=== PATIENT | female | born 1990 | race Caucasian/White ===

== ENCOUNTER 2021-04-14 13:25 | Emergency (ER) | payer OTHER ==
[~2021-04-14] VITALS: Ht 182.9 cm; Wt 96.5 kg
[2021-04-14] MEDS ORDERED: IBUP200C33 PO (13:36)
[2021-04-14] MEDS ORDERED: BACT800T5 PO (13:36)
[2021-04-14] MEDS ORDERED: MUPI2OI TOP (13:36)
[2021-04-14 17:34] LABS: BASO % 0.2 % (0.0-1.0); EOS # 0.1 10^3/uL (0.0-0.5); EOS % 0.6 % (0.0-3.0); HEMATOCRIT 44.2 % (36.0-47.0); HEMOGLOBIN 13.9 g/dl (12.0-15.5); LYMPH # 1.8 10^3/uL (1.5-5.0); LYMPH % 12.4 % (24.0-44.0); MEAN CORPUSCULAR HEMOGLOBIN 27.2 pg (27.0-33.0); MEAN CORPUSCULAR HGB CONC 31.4 g/dl (32.0-36.5); MEAN CORPUSCULAR VOLUME 86.5 fl (80.0-96.0); MONO # 1.1 10^3/uL (0.0-0.8); MONO % 7.9 % (2.0-8.0); NEUTROPHILS # 11.1 10^3/uL (1.5-8.5); NEUTROPHILS % 78.4 % (36.0-66.0); PLATELET COUNT, AUTOMATED 283 10^3/uL (150-450); RED BLOOD COUNT 5.11 10^6/uL (4.00-5.40); WHITE BLOOD COUNT 14.2 10^3/uL (4.0-10.0)
[2021-04-14 17:59] LABS: ERYTHROCYTE SEDIMENTATION RATE 32 mm/hr (0-20)
[2021-04-14 18:10] VITALS: BP 181/85
[2021-04-14 18:20] LABS: BLOOD UREA NITROGEN 10 MG/DL (7-18); CALCIUM LEVEL 8.7 MG/DL (8.5-10.1); CARBON DIOXIDE LEVEL 26 MEQ/L (21-32); CHLORIDE LEVEL 105 MEQ/L (98-107); CREATININE FOR GFR 0.75 MG/DL (0.55-1.30); GLOMERULAR FILTRATION RATE > 60.0 (>60); GLUCOSE, FASTING 87 MG/DL (70-100); POTASSIUM SERUM 3.8 MEQ/L (3.5-5.1); SODIUM LEVEL 137 MEQ/L (136-145)
[2021-04-14] MEDS ORDERED: diphenhydrAMINE 50MG/ML VIAL (J1200) IV ONE (19:00)
[2021-04-14] MEDS ORDERED: KETOROLAC 30 MG/ML 1ML VIAL IV ONE (19:00)
[2021-04-14] MEDS ORDERED: cefTRIAXone SOD 1 GM in D5W MINI-BAG PLUS 50 ML IV ONE (19:00)
== END 2021-04-14 20:31 | disposition home or self-care (01) ==
LOC: M ED 13:25
DX: L03.113 Cellulitis of right upper limb (principal); L73.9 Follicular disorder, unspecified
CPT/HCPCS: 36415; 80048; 83605; 84702; 85025; 85652; 86140; 87040; 96365; 96375; 99283; J0696; J1200; J1885